=== PATIENT | male | born 1965 | race Native Hawaiian/Other Pacific Islander ===

== ENCOUNTER 2021-11-23 20:16 | Emergency (ER) | payer OTHER ==
[~2021-11-23] VITALS: Ht 165.1 cm; Wt 131.5 kg
[2021-11-23 20:53] LABS: PLATELET COUNT 170 K/uL (142-355)
[2021-11-23 20:59] LABS: POTASSIUM 3.8 mmol/L (3.6-5.2)
[2021-11-23 21:30] VITALS: BP 128/70; TEMP 98.1
[2021-11-24] MEDS ORDERED: ASCO500T18 PO (08:54)
[2021-11-24] MEDS ORDERED: ASPIRIN/ENTERIC81 MG PO (08:55)
[2021-11-24] MEDS ORDERED: DIVA500T2 PO ×2 (08:56→08:57)
[2021-11-24] MEDS ORDERED: FURO40TA93 PO (08:57)
[2021-11-24] MEDS ORDERED: EUTHYROX50 MCG PO (08:58)
[2021-11-24] MEDS ORDERED: MELATONIN5 M2 PO (08:59)
[2021-11-24] MEDS ORDERED: LIPITOR40 MG PO (08:59)
[2021-11-24] MEDS ORDERED: MULTIVITAMI1 PO (09:00)
[2021-11-24] MEDS ORDERED: OLAN2.5T2 PO (09:01)
[2021-11-24] MEDS ORDERED: POT CHLORIDE10 MEQ PO (09:02)
[2021-11-24] MEDS ORDERED: PRO-STAT PO (09:03)
[2021-11-24] MEDS ORDERED: MINIPRESS2 MG PO (09:03)
[2021-11-24] MEDS ORDERED: MONT10TA PO (09:05)
[2021-11-24] MEDS ORDERED: SERT100T PO (09:05)
[2021-11-24] MEDS ORDERED: DOK100 MG PO (09:06)
[2021-11-24] MEDS ORDERED: ELIQUIS 5MG PO (09:06)
[2021-11-24] MEDS ORDERED: FAMOTIDINE MAXI20 MG PO (09:07)
[2021-11-24] MEDS ORDERED: VIMPAT200 M1 PO (09:08)
[2021-11-24] MEDS ORDERED: PROBIOTI3 PO (09:08)
[2021-11-24] MEDS ORDERED: GABAPENTIN 600 MG PO (09:09)
[2021-11-24] MEDS ORDERED: METOCLOPRAM5 MG PO (09:11)
[2021-11-24] MEDS ORDERED: ONDANSETRON4 M2 PO (09:12)
== END 2021-11-23 21:30 | disposition still patient (30) ==
LOC: ED 20:16
PROVIDERS: Emergency Medicine
DX: F32.9 Major depressive disorder, single episode, unspecified (principal); R45.851 Suicidal ideations; Z11.52 Encounter for screening for COVID-19; Z04.6 Encounter for general psychiatric examination, requested by authority
CPT/HCPCS: 36415; 80053; 85027; 87635; 93005; 99283; U0003